=== PATIENT | female | born 1975 | race Caucasian/White ===

== ENCOUNTER 2017-01-10 15:36 | Emergency (ER) | payer OTHER ==
[~2017-01-10] VITALS: Ht 160 cm; Wt 60.9 kg
[~2017-01-10 15:36] MED LIST: CIPR-255 PO; DIPH-437 PO
[2017-01-10 15:45] VITALS: TEMP 37; Ht 160 cm; Wt 60.9 kg
[2017-01-10] MEDS ORDERED: AMLO-3 PO (16:21)
[2017-01-10] MEDS ORDERED: ASCO500C43 PO (16:27)
[2017-01-10] MEDS ORDERED: HYDR25TA4 PO (16:27)
[2017-01-10] MEDS ORDERED: PRLSR20 PO (16:27)
[2017-01-10] MEDS ORDERED: NICO2GUM41 PO (16:27)
[2017-01-10 16:39] LABS: URINE APPEARANCE CLEAR (CLEAR); URINE BILIRUBIN NEG (NEG); URINE COLOR DK YELLOW; URINE NITRITE POS (NEG); URINE SPECIFIC GRAVITY 1.003 (1.000-1.030); UROBILINOGEN NEG (NEG); ZZUR CULT IF INDIC CLEAN CATCH YES
[2017-01-10 16:43] LABS: MANUAL MICROSCOPIC REQUIRED? NO; REVIEW REQ? NO
--- NOTE | 2017-01-10 16:52 | EMERGENCY ROOM VISIT NOTE ---
ED Visit Note First contact with patient: 15:52 CHIEF COMPLAINT: Frequent and painful urination HISTORY OF PRESENT ILLNESS: This 41 year old woman has had increased frequency of urination, burning pain with urination, and a feeling of incomplete voiding at started yesterday morning.. She passes very small volumes of urine with each episode of voiding. She denies back pain, fever, or vaginal discharge. The patient denies any blood in her urine. The patient states this feels like when she had a UTI in the past. The patient states that she took Azo REVIEW OF SYSTEMS: 6 system review was performed and was negative unless stated otherwise in history of present illness. PMH: EMR was reviewed and there are no changes from prior ER visit. See chronic problem list SOCIAL HISTORY: Patient is a former smoker. Patient is single. PHYSICAL EXAM: Vital Signs: Were reviewed Reviewed Nurse's notes. GEN.: 41-year -old white female appears in no acute distress. MENTAL Status: Alert and oriented 3. LUNGS: Clear to auscultation without wheezes rales or rhonchi. CARDIAC: Regular rate and rhythm without murmur. BACK: No CVA tenderness noted The abdomen is soft, mildly tender in the suprapubic area, but no masses or organs are felt. EMERGENCY DEPARTMENT COURSE: The patient was evaluated. A UA dip was not performed since the patient took Azo. Urinalysis revealed positive leukocytes, positive nitrates and positive bacteria. The urine will be sent for culture. The patient was given Macrobid 100 mg and Pyridium 200 mg while in the emergency room. The patient was discharged home in stable condition. DIAGNOSIS: UTI - Cystitis Push fluids. Take Macrobid as prescribed. Take Pyridium as prescribed. This will turn your urine orange. Do not be alarmed. Call in 36 hours if you are not improved to check culture results, and the appropriateness of the antibiotic therapy. Problem List Medical Problems: (1) ALCOHOL ABUSE-UNSPEC Status: Chronic (2) SCHIZOAFFECTIVE DISORDER, UNSPECIFIED Status: Chronic Current/Historical Medications Scheduled Amlodipine Besylate-Olmesartan (Gino), 2 TABS PO prn ud Ascorbic Acid (Vitamin C 500 mg), 1 TAB PO DAILY Hydrochlorothiazide (Hctz), 12.5 MG PO DAILY Hydroxyzine Pamoate (Vistaril), 25 MG PO HS Nicotine Polacrilex (Nicorelief), 2 MG PO UD Omeprazole (Prilosec), 20 MG PO DAILY Allergies Coded Allergies: No Known Allergies (Verified , 11/30/15) Vital Signs Date Time Temp Pulse Resp B/P Pulse Ox O2 Delivery O2 Flow Rate FiO2 01/10/17 15:45 37.0 87 20 145/105 98 Room Air Laboratory Results Test 01/10/17 16:00 Urine Color DK YELLOW Urine Appearance CLEAR (CLEAR) Urine pH 7.0 (4.5-7.5) Urine Specific [place] 1.003 (1.000-1.030) Urine Protein NEG (NEG) Urine Glucose (UA) NEG (NEG) Urine Ketones NEG (NEG) Urine Occult Blood NEG (NEG) Urine Nitrite POS (NEG) Urine Bilirubin NEG (NEG) Urine Urobilinogen NEG (NEG) Urine Leukocyte Esterase LARGE (NEG) Urine WBC (Auto) 10-30 /hpf (0-5) Urine RBC (Auto) 0-4 /hpf (0-4) Urine Hyaline Casts (Auto) 1-5 /lpf (0-5) Urine Epithelial Cells (Auto) 10-20 /lpf (0-5) Urine Bacteria (Auto) 4+ (NEG) Departure Information Referrals Dara Almonte C.R.N.P. (PCP) Patient Instructions My [facility]
[2017-01-10] MEDS ORDERED: PHEN-876 PO (16:54)
[2017-01-10] MEDS ORDERED: NITR-5 PO (16:55)
[2017-01-10] MEDS ORDERED: PHENAZOPYRIDINE HCL 200 MG TAB PO STA (17:13)
[2017-01-10] MEDS ORDERED: NITROFURANTOIN MONOHYDRATE 100 MG CAP PO ONE (17:15)
[2017-01-10 17:30] VITALS: BP 136/84; PULSE 87; O2SAT 99
--- NOTE | 2017-01-12 11:05 | Pharmacy Progress Note ---
ED Pharmacist Culture FollowUp Date of Service: Jan 12, 2017. Patient was sent home with a prescription for Macrobid 100mg PO BID x 7 days, which should cover the E coli growing from the patient's URINE culture. No action required.
== END 2017-01-10 17:30 | disposition home or self-care (01) ==
LOC: C.EDB 15:38 → C.EDD 17:30
DX: N30.90 Cystitis, unspecified without hematuria (principal); Z87.891 Personal history of nicotine dependence

== ENCOUNTER 2017-04-16 15:51 | Emergency (ER) | payer OTHER ==
[~2017-04-16] VITALS: Ht 160 cm; Wt 61.1 kg
[~2017-04-16 15:51] MED LIST changes: +AMLO-3 PO; +ASCO500C43 PO; -CIPR-255 PO; -DIPH-437 PO; +HYDR25TA4 PO; +NICO2GUM41 PO; +PRLSR20 PO
[2017-04-16 15:54] VITALS: TEMP 36.9; Ht 160 cm; Wt 61.1 kg
[2017-04-16] MEDS ORDERED: HYDR1CAP85 PO (16:21)
--- NOTE | 2017-04-16 16:32 | EMERGENCY ROOM VISIT NOTE ---
ED Visit Note First contact with patient: 16:12 CHIEF COMPLAINT: Low back pain HISTORY OF PRESENT ILLNESS: The patient complains of pain in the low back which began after doing some bending/lifting activities yesterday. The pain was gradual in onset, is now constant and worse with movement. Denies any bowel or bladder difficulties. There has been no leg numbness, tingling, or weakness. Increased pain with walking. No recent direct trauma. No vomiting or abdominal pain. She did not try any OTC medications, ice or heat. She did take a warm bath with minimal improvement. REVIEW OF SYSTEMS: No significant prior back injuries, no abdominal pain, vomiting or diarrhea, no chest pain or shortness of breath. No dysuria or increased urinary frequency. PMH: The patient is healthy; there is no significant medical or surgical history. SOCIAL HISTORY: Patient lives at home. PHYSICAL EXAM: Vital Signs: Reviewed Nurse's notes. MENTAL STATUS: Alert and oriented. NECK: Supple, non-tender. ABDOMEN: Soft, non-tender, no masses or organs felt. Bowel sounds normoactive. BACK: Tenderness in the paraspinous muscles in the lumbar area. No tenderness over the spinous processes of the lumbar vertebrae. LEGS: Normal strength including dorsi-flexion and plantar flexion of the feet. Negative bilateral straight leg raising, normal and symmetrical knee and ankle reflexes. EMERGENCY DEPARTMENT COURSE: I examined the patient. Differential diagnosis includes low back strain, sprain, muscle spasm, disc herniation, less likely fracture, cauda equina syndrome. Patient has no midline tenderness of the back with a normal neurologic exam, no red flags on exam to indicate need for imaging at this time. Patient was given IM Toradol with good improvement in her pain. Patient was noted to ambulate well without any difficulties. She was instructed to follow closely with her PCP for ongoing management. The patient was discharged home in good condition. Problem List Medical Problems: (1) ALCOHOL ABUSE-UNSPEC Status: Chronic (2) SCHIZOAFFECTIVE DISORDER, UNSPECIFIED Status: Chronic Current/Historical Medications Scheduled PRN Hydroxyzine Pamoate (Vistaril), 25 MG PO DAILY PRN for Anxiety Allergies Coded Allergies: No Known Allergies (Verified , 11/30/15) Vital Signs Date Time Temp Pulse Resp B/P (MAP) Pulse Ox O2 Delivery O2 Flow Rate FiO2 04/16/17 17:57 89 18 141/96 97 04/16/17 15:54 36.9 95 18 153/104 95 Room Air Medications Administered Medications (Trade) Dose Ordered Sig/Hillary Route Start Time Stop Time Status Last Admin Dose Admin Ketorolac Tromethamine (Toradol Inj) 60 mg NOW STAT IM 04/16/17 16:33 04/16/17 16:34 DC 04/16/17 16:45 60 MG Departure Information Impression Primary Impression: Low back strain Dispostion Home / Self-Care Condition GOOD Referrals Dara Almonte C.R.N.P. (PCP) Patient Instructions ED Exercises Lumbar Muscles, ED Low Back Pain Injury, [facility] Additional Instructions You have been treated in the Emergency Department for Back Pain. For pain control, you can use the following itog-sja-fhrkizl medicines (if >12 yo): - Extra strength (500mg/tab) Tylenol (acetaminophen) 1-2 tabs every 6-8 hours as needed. Do not exceed 6 tablets in a 24 hour period. Avoid taking more than 3 grams (3000 mg) of Tylenol per day. This includes any other sources of acetaminophen you may take on a regular basis. - Regular strength (200 mg/tab) Advil (ibuprofen) 2 tabs every 4-6 hours as needed. Do not exceed a dose of 3200 mg per day. OR Aleve (220 mg/tab) 1-2 tabs every 12 hours. If this is an acute injury, ice can be applied to the area of pain for the first 3 days to help decrease pain and inflammation. After the first 3 days, a heating pad can be used over the area for continued soothing relief. You should schedule a follow-up appointment in 2-3 days with your Primary Care Provider for further evaluation and treatment of your back pain. Return to the Emergency Department if your current symptoms worsen despite treatment course outlined above, or if you develop any of the following symptoms : intractable pain despite above treatment course, weakness or numbness in your legs, loss of control of your bowel or bladder, numbness or tingling in your groin, or development of a fever. Work Instructions Return To Work: 1 day Lifting Limitations: no more than 20 pounds Additional Work Instructions: Avoid heavy lifting for the next few days until you are cleared by your PCP. Problem Qualifiers Primary Impression: Low back strain Encounter type: initial encounter Qualified Codes: S39.012A - Strain of muscle, fascia and tendon of lower back, initial encounter
[2017-04-16] MEDS ORDERED: KETOROLAC TROMETHAMINE 60 MG/2 ML VIAL IM STA (16:33)
[2017-04-16 17:57] VITALS: BP 141/96; PULSE 89; O2SAT 97
== END 2017-04-16 17:57 | disposition home or self-care (01) ==
LOC: C.EDB 15:53 → C.EDD 17:57
DX: S39.012A Strain of muscle, fascia and tendon of lower back, initial encounter (principal); X50.1XXA Overexertion from prolonged static or awkward postures, initial encounter; F10.10 Alcohol abuse, uncomplicated; F25.9 Schizoaffective disorder, unspecified

== ENCOUNTER 2017-06-10 11:17 | Emergency (ER) | payer OTHER ==
[~2017-06-10] VITALS: Ht 160 cm; Wt 59.4 kg
[~2017-06-10 11:17] MED LIST changes: -AMLO-3 PO; -ASCO500C43 PO; +HYDR1CAP85 PO; -HYDR25TA4 PO; -NICO2GUM41 PO; -PRLSR20 PO
[2017-06-10 11:19] VITALS: TEMP 36.4; Ht 160 cm; Wt 59.4 kg
[2017-06-10] MEDS ORDERED: SODIUM CHLORIDE 0.9% 1000ML 1,000 ML IV STA (11:27)
[2017-06-10] MEDS ORDERED: ONDANSETRON INJ 2 MG/ML 2 ML VIAL IV STA (11:27)
[2017-06-10 12:03] LABS: BASO % 0.4 %; BASO ABS # 0.04 K/uL (0-0.2); COMPLETE YES; EOS % 1.2 %; HEMATOCRIT 42.2 % (37-47); IG% 0.2 %; LYMPH ABS # 1.18 K/uL (1.2-3.4); MEAN CELL VOLUME 93.2 fL (80-100); MEAN CORPUSCULAR HEMOGLOBIN 32.5 pg (25-34); MEAN CORPUSCULAR HGB CONC 34.8 g/dl (32-36); MEAN PLATELET VOLUME 8.9 fL (7.4-10.4); MONO % 3.9 %; NEUT % 83.3 %; PLATELET COUNT 324 K/uL (130-400); RED BLOOD COUNT 4.53 M/uL (4.2-5.4); WHITE BLOOD COUNT 10.75 K/uL (4.8-10.8)
[2017-06-10 12:10] LABS: URINE APPEARANCE CLEAR (CLEAR); URINE BILIRUBIN NEG (NEG); URINE COLOR DK YELLOW; URINE EPITHELIAL CELL AUTO >30 /lpf (0-5); URINE NITRITE NEG (NEG); UROBILINOGEN NEG (NEG); ZZUR CULT IF INDIC CLEAN CATCH NO
[2017-06-10 12:13] LABS: MANUAL MICROSCOPIC REQUIRED? NO; REVIEW REQ? NO
[2017-06-10 12:22] LABS: BUN/CREATININE RATIO 12.2 (10-20); CREATININE 0.99 mg/dl (0.60-1.20); POTASSIUM 3.5 mmol/L (3.5-5.1)
[2017-06-10] MEDS ORDERED: ONDA4TAB10 SL (12:29)
--- NOTE | 2017-06-10 12:30 | EMERGENCY ROOM VISIT NOTE ---
History First contact with patient: 11:23 Chief Complaint: NAUSEA Stated Complaint: NAUSEA, HARD TO FOCUS History of Present Illness The patient is a 42 year old female who presents to the Emergency Room with complaints of nausea and vomiting which started at 9:30 this morning while she was at work. The patient denies any change in bowel habits. The patient denies any abdominal pain. The patient denies any urinary symptoms of frequency , urgency, dysuria or hematuria. The patient denies any fever. The patient denies any known exposures to people with similar symptoms. Review of Systems 10 system review was performed and was negative unless stated otherwise history of present illness. Past Medical/Surgical History Medical Problems: (1) ALCOHOL ABUSE-UNSPEC (2) SCHIZOAFFECTIVE DISORDER, UNSPECIFIED Family History Diabetes mellitus FH: heart disease Kidney disease Social History Smoking Status: Current Every Day Smoker Alcohol Use: none Marital Status: single Occupation Status: employed Current/Historical Medications Scheduled PRN Hydroxyzine Pamoate (Vistaril), 25 MG PO DAILY PRN for Anxiety Physical Exam Vital Signs Date Time Temp Pulse Resp B/P (MAP) Pulse Ox O2 Delivery O2 Flow Rate FiO2 06/10/17 11:19 36.4 97 18 162/109 98 Room Air Physical Exam GENERAL: 42-year-old white female appears in no acute distress. MENTAL Status: Alert and oriented 3. MOUTH: Mucosa is moist NECK: Supple, no lymphadenopathy noted. No carotid bruits noted. LUNGS: Clear auscultation without wheezes rales or rhonchi. CARDIAC: Regular rate and rhythm without murmur. Pulses is full and equal throughout. BACK: No CVA tenderness noted. ABDOMEN: Positive bowel sounds all 4 quadrants. Soft, nontender to palpation without organomegaly or masses. EXTREMITIES: No cyanosis or edema noted. Medical Decision & Procedures Laboratory Results 06/10/17 11:50 Red Blood Count 4.53, Mean Corpuscular Volume 93.2, Mean Corpuscular Hemoglobin 32.5, Mean Corpuscular Hemoglobin Concent 34.8, Mean Platelet Volume 8.9, Neutrophils (%) (Auto) 83.3, Lymphocytes (%) (Auto) 11.0, Monocytes (%) (Auto) 3.9, Eosinophils (%) (Auto) 1.2, Basophils (%) (Auto) 0.4, Neutrophils # (Auto) 8.96, Lymphocytes # (Auto) 1.18, Monocytes # (Auto) 0.42, Eosinophils # (Auto) 0.13, Basophils # (Auto) 0.04 06/10/17 11:50 Test 06/10/17 11:46 06/10/17 11:50 Urine Color DK YELLOW Urine Appearance CLEAR (CLEAR) Urine pH 5.0 (4.5-7.5) Urine Specific [place] 1.020 (1.000-1.030) Urine Protein NEG (NEG) Urine Glucose (UA) NEG (NEG) Urine Ketones 1+ (NEG) Urine Occult Blood 2+ (NEG) Urine Nitrite NEG (NEG) Urine Bilirubin NEG (NEG) Urine Urobilinogen NEG (NEG) Urine Leukocyte Esterase NEG (NEG) Urine WBC (Auto) 1-5 /hpf (0-5) Urine RBC (Auto) 0-4 /hpf (0-4) Urine Hyaline Casts (Auto) 1-5 /lpf (0-5) Urine Epithelial Cells (Auto) >30 /lpf (0-5) Urine Bacteria (Auto) NEG (NEG) White Blood Count 10.75 K/uL (4.8-10.8) Red Blood Count 4.53 M/uL (4.2-5.4) Hemoglobin 14.7 g/dL (12.0-16.0) Hematocrit 42.2 % (37-47) Mean Corpuscular Volume 93.2 fL (80-100) Mean Corpuscular Hemoglobin 32.5 pg (25-34) Mean Corpuscular Hemoglobin Concent 34.8 g/dl (32-36) Platelet Count 324 K/uL (130-400) Mean Platelet Volume 8.9 fL (7.4-10.4) Neutrophils (%) (Auto) 83.3 % Lymphocytes (%) (Auto) 11.0 % Monocytes (%) (Auto) 3.9 % Eosinophils (%) (Auto) 1.2 % Basophils (%) (Auto) 0.4 % Neutrophils # (Auto) 8.96 K/uL (1.4-6.5) Lymphocytes # (Auto) 1.18 K/uL (1.2-3.4) Monocytes # (Auto) 0.42 K/uL (0.11-0.59) Eosinophils # (Auto) 0.13 K/uL (0-0.5) Basophils # (Auto) 0.04 K/uL (0-0.2) RDW Standard Deviation 41.7 fL (36.4-46.3) RDW Coefficient of Variation 12.3 % (11.5-14.5) Immature Granulocyte % (Auto) 0.2 % Immature Granulocyte # (Auto) 0.02 K/uL (0.00-0.02) Anion Gap 8.0 mmol/L (3-11) Est Creatinine Clear Calc Drug Dose 60.0 ml/min Estimated GFR () 80.3 Estimated GFR (Non- 69.3 BUN/Creatinine Ratio 12.2 (10-20) Calcium Level 9.0 mg/dl (8.5-10.1) Total Bilirubin 0.5 mg/dl (0.2-1) Direct Bilirubin 0.2 mg/dl (0-0.2) Aspartate Amino Transf (AST/SGOT) 23 U/L (15-37) Alanine Aminotransferase (ALT/SGPT) 30 U/L (12-78) Alkaline Phosphatase 75 U/L (45-117) Total Protein 7.8 gm/dl (6.4-8.2) Albumin 4.3 gm/dl (3.4-5.0) Lipase 134 U/L (73-393) Medications Administered Medications (Trade) Dose Ordered Sig/Hillary Route Start Time Stop Time Status Last Admin Dose Admin Sodium Chloride 1,000 ml @ 999 mls/hr Q1H1M STAT IV 06/10/17 11:27 06/10/17 12:27 06/10/17 11:55 999 MLS/HR Ondansetron HCl (Zofran Inj) 4 mg NOW STAT IV 06/10/17 11:27 06/10/17 11:29 DC 06/10/17 11:56 4 MG ED Course The patient was evaluated. The patient's EMR medication list were reviewed. IV access was obtained. The patient was given 1 L normal saline wide-open. The patient was given Zofran 4 mg IV push for nausea. CBC differential, renal profile, LFTs and lipase levels were ordered. Urinalysis was ordered. Labs are reviewed and were unremarkable. Urinalysis was negative. The patient was reevaluated was feeling better. The patient was discharged home in stable condition. Medical Decision Differential diagnosis include viral gastroenteritis, bowel obstruction, UTI Medication Reconcilliation Current Medication List: was personally reviewed by me Blood Pressure Screening Patient's blood pressure: Elevated blood pressure Blood pressure disposition: Elevated BP felt to be situational Impression Primary Impression: Nausea and vomiting Departure Information Dispostion Home / Self-Care Condition GOOD Prescriptions Ondasetron Odt (ZOFRAN ODT) 4 Mg Tab 4 MG SL Q6H for Nausea, #10 TAB Prov: Noni Lawrence PA-C 06/10/17 Referrals No Doctor, Assigned (PCP) Forms HOME CARE DOCUMENTATION FORM, IMPORTANT VISIT INFORMATION Patient Instructions ED Nausea Vomiting, My [facility] Additional Instructions Push fluids. Follow bland diet. Advance diet slowly as tolerated. Take Zofran as needed for nausea. If symptoms persist, follow-up with your family doctor. If you have any uncontrolled vomiting, high fevers return to ER.
[2017-06-10 13:03] VITALS: BP 140/86; PULSE 83; O2SAT 99
== END 2017-06-10 12:45 | disposition home or self-care (01) ==
LOC: C.EDB 11:18 → C.EDC 12:45
DX: R11.2 Nausea with vomiting, unspecified (principal); F25.9 Schizoaffective disorder, unspecified; F10.10 Alcohol abuse, uncomplicated; Z83.3 Family history of diabetes mellitus; Z82.49 Family history of ischemic heart disease and other diseases of the circulatory system; Z84.1 Family history of disorders of kidney and ureter; F17.210 Nicotine dependence, cigarettes, uncomplicated

== ENCOUNTER 2018-02-22 15:49 | Emergency (ER) | payer OTHER ==
[~2018-02-22] VITALS: Ht 160 cm; Wt 62.8 kg
[2018-02-22 16:01] VITALS: TEMP 36.7; Ht 160 cm; Wt 62.8 kg
[2018-02-22 17:00] LABS: BASO % 0.2 %; BASO ABS # 0.02 K/uL (0-0.2); EOS % 4.7 %; EOS ABS # 0.38 K/uL (0-0.5); HEMATOCRIT 40.9 % (37-47); HEMOGLOBIN 14.1 g/dL (12.0-16.0); IG# 0.02 K/uL (0.00-0.02); MEAN CELL VOLUME 92.1 fL (80-100); MEAN CORPUSCULAR HEMOGLOBIN 31.8 pg (25-34); MEAN CORPUSCULAR HGB CONC 34.5 g/dl (32-36); MEAN PLATELET VOLUME 9.4 fL (7.4-10.4); MONO % 5.5 %; MONO ABS # 0.44 K/uL (0.11-0.59); NEUT % 64.4 %; NEUT ABS # 5.15 K/uL (1.4-6.5); PLATELET COUNT 267 K/uL (130-400); RED CELL DISTRIBUTION WIDTH CV 12.9 % (11.5-14.5); WHITE BLOOD COUNT 8.01 K/uL (4.8-10.8)
[2018-02-22 17:15] LABS: ALBUMIN 4.3 gm/dl (3.4-5.0); ALT/SGPT 22 U/L (12-78); AST/SGOT 15 U/L (15-37); BLOOD UREA NITROGEN 8 mg/dl (7-18); CALCIUM 9.1 mg/dl (8.5-10.1); CARBON DIOXIDE 27 mmol/L (21-32); CREATININE 0.85 mg/dl (0.60-1.20); GLUCOSE 84 mg/dl (70-99); LIPASE 217 U/L (73-393); POTASSIUM 3.4 mmol/L (3.5-5.1); SODIUM 136 mmol/L (136-145)
[2018-02-22 17:20] LABS: ALKALINE PHOSPHATASE 77 U/L (45-117); CKMB 1.1 ng/ml (0.5-3.6); TOTAL PROTEIN 8.1 gm/dl (6.4-8.2)
--- NOTE | 2018-02-22 17:20 | DIAGNOSTIC IMAGING REPORT ---
CHEST 2 VIEWS ROUTINE CLINICAL HISTORY: Atypical chest pain PRODUCTIVE COUGH COMPARISON STUDY: 01/02/2015 FINDINGS: The cardiac and mediastinal contours are normal. There is no evidence of focal pulmonary consolidation. There is no evidence of failure. No pleural effusions are visualized.[ IMPRESSION: No active disease in the chest. Electronically signed by: Elliot Arellano M.D. 02/22/2018 5:18 PM Dictated Date/Time: 02/22/2018 5:15 PM
[2018-02-22] MEDS ORDERED: BENZ100C18 PO (17:26)
[2018-02-22 17:49] VITALS: BP 130/84; PULSE 80; O2SAT 98
--- NOTE | 2018-02-22 23:26 | EMERGENCY ROOM VISIT NOTE ---
ED Visit Note First contact with patient: 16:05 Chief Complaint: Cough. History of Present Illness: Ms. Dumont is a 43-year-old white female who ambulates into the ED complaining of an ongoing cough for the last 4 days. She reports over the last 4 days she continues to have a cough that is productive of a greenish/yellowish mucus that has been associated with chills but no kev fevers. She has been taking NyQuil and Cold-Eeze for her symptoms. Additionally she reports she has a runny nose, bilateral ear pain and on Wednesday when her symptoms started she had a sore throat but that is subsequently resolved. Additionally she reports over the last few months she has been having right sided chest pain above her breast. This pain has been intermittent and has not been exacerbated with her current symptoms. She describes this as a pressure- like sensation. At its worst she rates her discomfort 8/10. Currently she is pain-free. She denies no radiation of pain. She has not been seen for this pain prior to arrival at the hospital. She does not normally take medications for her pain. Typically her pain self resolves and she has no associated symptoms. Review of Systems: As noted above in history of present illness. All body systems were reviewed and found to be negative as noted above. Past Medical History: Hypertension. Current Medications: Vistaril. Allergies to Medications: Patient denies. Social History: Patient is currently employed; she feels safe in her home environment; she admits to tobacco use and denies alcohol use. Physical Examination: Vital Signs: Date Time Temp Pulse Resp B/P (MAP) Pulse Ox O2 Delivery O2 Flow Rate FiO2 02/22/18 17:49 80 16 130/84 98 02/22/18 17:00 78 16 136/99 99 02/22/18 16:04 Room Air 02/22/18 16:01 36.7 74 16 160/73 99 Room Air GENERAL: 43-year-old female in mild distress due to symptoms, nontoxic-appearing , afebrile and hemodynamically stable. NEUROLOGICAL: Awake, alert and oriented to person, place and time. Answering questions appropriately and following commands. Normal gait. Good hand eye coordination. No focal motor sensory deficits. SKIN: Warm, dry and pink. No soft tissue eruptions or trauma noted. HEENT: Atraumatic and normocephalic. No tenderness or erythema over the maxillary or frontal sinuses. External ears are nontender. Auditory canals are pink and patent. Tympanic membranes are pearly bonner with normal light reflex. PERRLA. Sclera white and conjunctiva pink. No drainage from naris. Oral cavity moist and pink. Uvula is midline and no abscesses were seen. Pharynx is nonerythematous or edematous. No tonsillar hypertrophy or exudates. Speech normal. No lymphadenopathy. Trachea midline. No jugular venous distention. No carotid bruits. No carotid bruits. BACK: No tenderness over the bony spine. No CVA tenderness. THORAX: Lungs sounds are clear to auscultation and equal bilaterally with symmetrical chest wall. No wheezing, rales or rhonchi. No crepitus, tenderness , subcutaneous air or deformities noted. PMI is not displaced. No lifts, heaves or thrills. HEART: Regular rate and rhythm. No gallops, rubs or murmurs are appreciated. ABDOMEN: Flat, soft and nontender. Positive bowel sounds in all quadrants. No guarding, rigidity or organomegaly. EXTREMITIES: Moves all extremities well on command and with purpose. All distal neurovascular statuses are intact and equal bilaterally. No calf tenderness or cords. ED Course: Patient is assessed as noted above. Patient's medication list was reviewed. Laboratory Testing: Test 02/22/18 16:49 02/22/18 16:58 Range/Units White Blood Count 8.01 4.8-10.8 K/uL Red Blood Count 4.44 4.2-5.4 M/uL Hemoglobin 14.1 12.0-16.0 g/dL Hematocrit 40.9 37-47 % Mean Corpuscular Volume 92.1 80-100 fL Mean Corpuscular Hemoglobin 31.8 25-34 pg Mean Corpuscular Hemoglobin Concent 34.5 32-36 g/dl Platelet Count 267 130-400 K/uL Mean Platelet Volume 9.4 7.4-10.4 fL Neutrophils (%) (Auto) 64.4 % Lymphocytes (%) (Auto) 25.0 % Monocytes (%) (Auto) 5.5 % Eosinophils (%) (Auto) 4.7 % Basophils (%) (Auto) 0.2 % Neutrophils # (Auto) 5.15 1.4-6.5 K/uL Lymphocytes # (Auto) 2.00 1.2-3.4 K/uL Monocytes # (Auto) 0.44 0.11-0.59 K/uL Eosinophils # (Auto) 0.38 0-0.5 K/uL Basophils # (Auto) 0.02 0-0.2 K/uL RDW Standard Deviation 44.0 36.4-46.3 fL RDW Coefficient of Variation 12.9 11.5-14.5 % Immature Granulocyte % (Auto) 0.2 % Immature Granulocyte # (Auto) 0.02 0.00-0.02 K/uL Sodium Level 136 136-145 mmol/L Potassium Level 3.4 3.5-5.1 mmol/L Chloride Level 103 98-107 mmol/L Carbon Dioxide Level 27 21-32 mmol/L Anion Gap 6.0 3-11 mmol/L Blood Urea Nitrogen 8 7-18 mg/dl Creatinine 0.85 0.60-1.20 mg/dl Est Creatinine Clear Calc Drug Dose 69.1 ml/min Estimated GFR () 95.9 Estimated GFR (Non- 82.8 BUN/Creatinine Ratio 9.5 10-20 Random Glucose 84 70-99 mg/dl Calcium Level 9.1 8.5-10.1 mg/dl Total Bilirubin 0.3 0.2-1 mg/dl Direct Bilirubin < 0.1 0-0.2 mg/dl Aspartate Amino Transf (AST/SGOT) 15 15-37 U/L Alanine Aminotransferase (ALT/SGPT) 22 12-78 U/L Alkaline Phosphatase 77 45-117 U/L Total Creatine Kinase 101 26-192 U/L Creatine Kinase MB 1.1 0.5-3.6 ng/ml Creatine Kinase MB Ratio 1.1 0-3.0 Total Protein 8.1 6.4-8.2 gm/dl Albumin 4.3 3.4-5.0 gm/dl Lipase 217 73-393 U/L Bedside Troponin I < 0.030 0-0.045 ng/ml EKG: Was read by myself and reviewed with Dr. Temple; shows normal sinus rhythm with a ventricular rate of 70 bpm. Normal axis, intervals and complexes. No acute ST changes indicating ischemia, injury or infarction. No previous to compare. Chest X-Ray: Was read by myself and the radiologist showing no acute infiltrates , effusions or pneumothorax. Normal heart silhouette and bony anatomy. Compared to previous from December 2014 and no acute changes were noted. Patient was reassessed multiple times during her stay in the emergency department. Patient was educated about today's findings and instructed on her treatment plan ; she verbalized understanding and agreement with this plan. Clinical Impression: Cough. Decision-Making: Initially my differential diagnosis I considered pneumonia, bronchitis, congestive heart failure, acute coronary syndrome, pulmonary embolism and other causes. Disposition: Patient discharged home in stable condition; prior to departure she was reassessed and subjectively reported that she was pain-free and rated the intensity of her cough 4/10. Plan: Patient was encouraged to continue her current medications as prescribed. Patient was prescribed Tessalon Perles 100 mg every 8 hours as needed for cough. Patient was encouraged to stay well-hydrated with increased clear fluids, consider sitting upright and use a vaporizer/humidifier in her home. Patient was encouraged to follow-up with her PCP for recheck if no better in 3- 4 days. Patient was encouraged return the ED for worsening cough, shortness of breath, wheezing, coughing up blood, fevers or any new/concerning symptoms.
== END 2018-02-22 18:00 | disposition home or self-care (01) ==
LOC: C.EDB 15:52 → C.EDD 18:00
DX: R05 Cough (principal); J34.89 Other specified disorders of nose and nasal sinuses; H92.03 Otalgia, bilateral; I10 Essential (primary) hypertension; Z72.0 Tobacco use